=== PATIENT | female | born 1960 | race Caucasian/White ===

== ENCOUNTER 2025-05-15 08:42 | Emergency (ER) | payer SELFPAY ==
--- OUTSIDE RECORDS SUMMARY | 2025-05-15 08:50 | XMS_ITS | Clinical Summary ---
Author Organization [facility] Manuel villalpando [place] Address [address] [place] [address] Phone Care Team Providers Care Bench Loom Weaver Name Role Phone Annie Oralia Kirby SORIA Primary Care Provider Allergies Active Allergy Reactions Criticality Noted Date Comments Penicillins Hives High 04/25/2024 Blisters in private area Medications metoprolol succinate (TOPROL XL) 25 mg Extended Release 24 hour tabletIndications :Benign hypertension Take 1 Tablet (25 mg) by mouth daily. 90 Tablet 1 04/25/2024 Active Active Problems Problem Noted Date Diagnosed Date Benign hypertension 04/25/2024 History of hepatitis C 04/25/2024 History of hepatitis B 04/25/2024 Encounters Date Type Department Care Team Description 03/26/2025 External Device Data ST[facility] ABSTRACTION Provider, Abstract from Last 3 Months Social History Tobacco Use Types Packs/Day Years Used Date Smoking Tobacco: Every Day Cigarettes Passive Smoke Exposure: Never Smokeless Tobacco: Never Tobacco Cessation:Ready to Q uit: Not Asked; Counseling Given: No Alcohol Use Standard Drinks/Week Comments Yes 42 (1 standard drink = 0.6 oz pu re alcohol) Comments Unknown Sex and Gender Information Value Date Recorded Sex Assigned at Not on file Legal Sex Female 9:57 AM CDT Gender Identity Not on file Sexual Orientation Not on file Last Filed Vital Signs Vital Sign Reading Time Taken Comments Blood Pressure 132/60 04/25/2024 2:23 PM CDT Pulse 86 04/25/2024 2:23 PM CDT Temperature 37.4 C (99.3 F) 04/25/2024 2:23 PM CDT Respiratory Rate 18 04/25/2024 2:23 PM CDT Oxygen Saturation 96% 04/25/2024 2:23 PM CDT Inhaled Oxygen Concentration - - Weight 89.6 kg (197 lb 9.6 oz) 04/25/2024 2:23 P M CDT Height 167.6 cm (5' 6 ) 04/25/2024 2:23 PM CDT Body Mass Index 31.89 04/25/2024 2:23 PM CDT Plan of Treatment Health Maintenance Due Date Last Done Comments Pre-Diabetes and Diabetes Screening 1961 DTAP/TDAP/TD VACCINES (1 - Tdap) 02/16/1980 FIT-DNA Q 3 years 2006 FIT/FOBT Q 1 year 2006 Flex Sig/CT Colonography Q 5 years 2006 ZOSTER VACCINE (1 of 2) 2011 BREAST CANCER SCREENING 02/02/2024 02/01/2023, 07/15 INFLUENZA VACCINE (#1) 2025 PAP SMEAR 11/26/2025 11/26/2022 CERVICAL CANCER SCREENING 11/27/2027 HPV/Cotest (21-29) 11/27/2027 11/26/2022 HPV/Cotest (30-65) 11/27/2027 11/26/2022 COLORECTAL SCREENING 04/15/2033 04/15/2023 Colorectal Cancer Screening 04/15/2033 RSV VACCINE (60+ or ) (1 - 1-dose 75+ series) 02/16/2036 Procedures Procedure Name Priority Date/Time Associated Diagnosis Comments ENDOSCOPY, COLON, SCREENING Routine 04/15/2023 10:26 AM CDT MAMMO SCREEN BILAT W OR WO CAD Routine 02/01/2023 10:28 AM CDT CERV/VAG CYTOPATH, THIN PREP ROLL MILL OPERATOR AND HPV Routine 11/26/2022 10:30 AM CDT from Last 3 Months or Most Recently Relevant to Health Maintenance Results * ENDOSCOPY, COLON, SCREENING (04/15/2023 10:26 AM CDT) us Abstract Provider GI PROCEDURE ORDERABLES Final Result * MAMMO SCREEN BILAT W OR WO CAD (02/01/2023 10:28 AM CDT) Anatomical Region Laterality Modality Breast Bilateral Mammography us Abstract Provider MAMMO ORDERABLES Edited Result - Final * CERV/VAG CYTOPATH, THIN PREP ROLL MILL OPERATOR AND HPV (11/26/2022 10:30 AM CDT) Genital SWAB OF ENDOCERVIX / Unknown us Abstract Provider PATHOLOGY/CYTOLOGY ORDERABLES Final Result from Last 3 Months or Most Recently Relevant to Health Maintenance Care Teams Bench Loom Weaver Relationship Specialty Start Date End Date Oralia Valencia DO [address] [place] [address] PCP - General Family Practice 04/25/24
[2025-05-15 08:51] VITALS: BP 135/79; PULSE 82; RESP 18; TEMP 37.1; O2SAT 97; BMI 33.3
--- NOTE | 2025-05-15 08:52 | XR_ITS ---
WS: [id number] Chest with right rib detail, 4 views, 05/15/2025 Clinical Data: R sided rib pain s/p fall Comparison: None. Findings: The lungs show no nodules, masses, or effusions. The heart is enlarged. No pneumonia or pneumothorax is seen. There are coarse interstitial markings throughout the lungs which probably represent chronic lung disease. The aortic arch shows calcification and tortuosity. There may be an undisplaced fracture of the tip of the right 10th rib. XR/XR ribs RT mn 3V w [id number] Impression: 1. Coarse interstitial markings throughout both lungs. 2. Cardiomegaly and atherosclerosis. 3. Undisplaced fracture of the tip of right 10th rib.
[2025-05-15 08:58] VITALS: RESP 18; O2SAT 99
[2025-05-15] MEDS: oxyCODONE-APAP 10-325 mg Tablet 1 TAB PO (08:58)
[2025-05-15 09:06] VITALS: PULSE 73; O2SAT 97
--- NOTE | 2025-05-15 10:40 | W.ED.FALL ---
HPI - Fall General: Chief Complaint: Fall Stated Complaint: R side pain, Fall Time Seen by Provider: 05/15/25 08:44 History of Present Illness: 65-year-old female with a past medical history significant for hypertension, presenting to the emergency department with a fall on Tuesday, mechanical in nature, fell against a nightstand on her right side, it did not immediately have any significant pain but the next morning woke up with pain to the area that has worsened over the last 2 days, she did not sustain any head trauma, she denies head neck or back pain, she denies weakness numbness or tingling to the legs or difficulty with ambulation, she denies incontinence of urine or stool, she denies nausea vomiting or diarrhea, no urinary symptoms, no blood in the urine, no dysuria. Related Data Home Medications ?Medication ?Instructions ?Recorded ?Confirmed albuterol sulfate 90 mcg/actuation 2 puff inhalation .Q4-6H PRN 05/15/25 05/15/25 aerosol inhaler Shortness Of Breath chlorthalidone 25 mg tablet 25 mg PO DAILY 05/15/25 05/15/25 metoprolol succinate 25 mg 12.5 mg PO DAILY 05/15/25 05/15/25 tablet,extended release 24 hr Previous Rx's ?Medication ?Instructions ?Recorded lidocaine 5 % topical patch 1 patch topical Q24H 1 month #15 ea 05/15/25 oxycodone-acetaminophen 5 mg-325 1 tab PO Q6H PRN pain 3 days #12 05/15/25 mg tablet (Percocet) tabs Allergies Allergy/AdvReac Type Severity Reaction Status Date / Time Penicillins Allergy Unknown Verified 05/15/25 08:54 Physical Exam Narrative: EXAM NARRATIVE: Gen: A&Ox4, no acute distress, nontoxic appearing HEENT: Normocephalic, atraumatic, no scleral icterus, external ears normal, moist mucous membranes Neck: Supple, full range of motion, no observable masses Lungs: No Respiratory distress, Lungs clear to auscultation bilaterally no rales, rhonchi, wheezing, there is tenderness to palpation of the right lateral rib region with no significant bruising swelling or skin changes CV: Regular rate and rhythm, no murmur, no pitting edema to lower extremities bilaterally Abdomen: Soft, nondistended, nontender to palpation to the right lower quadrant or to the right upper quadrant MSK: No joint swelling, FROM all 4 extremities, no tenderness palpation of the midline lumbar or thoracic spine Skin: No rashes, petechiae, lesions. Normal color per patient. Neuro: Alert and oriented, no slurred speech, sensation and strength grossly intact all 4 extremities Psych: Appropriate for situation. Course Vital Signs: Vital signs: Vital Signs Temperature 98.7 F 05/15/25 08:51 Pulse Rate 73 05/15/25 09:06 Respiratory Rate 18 05/15/25 08:58 Blood Pressure 135/79 05/15/25 08:51 Pulse Oximetry 97 05/15/25 09:06 Oxygen Delivery Me thod Room Air 05/15/25 09:06 MDM - Fall Medical Decision Making 65-year-old female presenting the emergency department with right sided flank pain after a fall that she suffered on Tuesday, no loss of consciousness, no preceding dizziness, physical exam with punctate area of tenderness to the right posterolateral rib region without any abdominal tenderness to palpation, no spinal tenderness or neurologic symptoms, no urinary symptoms, rib x-ray suggestive of a nondisplaced 10th rib fracture, plan for treat with pain control, Lidoderm patches, PCP follow-up. Return precautions discussed for hemoptysis, cough, worsening shortness of breath or pain, abdominal pain that spreads into the rest of the abdomen or is associate with any vomiting or diarrhea or fever or urinary symptoms, or any other concerns Lab Data Radiology Impressions Ribs X-Ray 05/15/25 08:52 Impression: 1. Coarse interstitial markings throughout both lungs. 2. Cardiomegaly and atherosclerosis. 3. Undisplaced fracture of the tip of right 10th rib. All radiology interpretation(s) finalized by discharge ED provider radiology interpretation(s): Rib x-ray showing possible nondisplaced fracture of the tip of the right 10th rib, there is interstitial markings throughout both lungs nonspecific in nature Discharge Plan Discharge Patient Disposition: Home Clinical Impression: Closed rib fracture Qualifiers: Encounter type: initial encounter Rib fracture type: single rib Laterality: right Qualified Code(s): S22.31XA - Fracture of one rib, right side, initial encounter for closed fracture Fall from standing Qualifiers: Encounter type: initial encounter Qualified Code(s): W19.XXXA - Unspecified fall, initial encounter Condition: Stable Prescriptions: New oxycodone-acetaminophen [Percocet] 5-325 mg tablet 1 tab PO Q6H PRN (Reason: pain) 3 Days Qty: 12 0RF lidocaine 5 % adhesive patch,medicated 1 patch topical Q24H 30 Days Qty: 15 0RF Rx Instructions: leave on most painful area for up to 12 hrs No Action chlorthalidone 25 mg tablet 25 mg PO DAILY metoprolol succinate 25 mg tablet extended release 24 hr 12.5 mg PO DAILY albuterol sulfate 90 mcg/actuation HFA aerosol inhaler 2 puff INHALATION .Q4-6H PRN (Reason: Shortness Of Breath) Discharge Orders: Discharge ED (Routine); Ordered 05/15/25 Ordered By: Dex Thomas Patient Instructions: Rib Fracture (ED), Opioid Safety, Pain Management, Patient Portal & Olga Instructions Activity Restrictions/Additional Instructions: You were seen for right-sided flank pain after a fall, your x-ray was suggestive of an isolated single rib fracture that should heal on its own, I have prescribed you pain medication to address this. Return to the ER if your symptoms worsen if you develop any blood in your cough or urine, vomiting or diarrhea, fevers, difficulty breathing or worsening pain, otherwise follow-up with your primary care doctor for further evaluation Print Language: Lithuanian Coding Level of Care Code ED Retail Store Associate for Jeimy Dhillon
== END 2025-05-15 11:00 | disposition home or self-care (01) ==
PROVIDERS: Emergency Provider Student in an Organized Health Care Education/Training Program
DX: S22.31XA Fracture of one rib, right side, initial encounter for closed fracture (principal); W19.XXXA Unspecified fall, initial encounter
CPT/HCPCS: 71101; 99283; J9999